=== PATIENT | male | born 1980 | race Two or more races ===

== ENCOUNTER 2020-06-07 01:18 | Emergency (ER) | payer MEDICAID, OTHER ==
[~2020-06-07] VITALS: Ht 198.1 cm; Wt 86.2 kg
--- NOTE | 2020-06-07 01:20 | NUR ---
PT SHARYN FROM STREET C/O ALCOHOL INTOXICATION. PT AAOX4. CALM AND COOPERATIVE. NOTED TACHYCARDIAC, MD AWARE. RESPIRATIONS EVEN AND UNLABORED. NO ACUTE DISTRESS NOTED AT THIS TIME. PLACED ON MONITOR, WILL CONTINUE TO MONITOR
[2020-06-07] MEDS ORDERED: ONDANSETRON HCL/PF 4 MG/2 ML VIAL ONE (01:27)
[2020-06-07] MEDS ORDERED: LORAZEPAM INJ 2 MG/ML VIAL IV ONE (01:30)
[2020-06-07] MEDS ORDERED: IV D5/ 0.9% NACL 1,000 ML IV ONE (01:30)
[2020-06-07] MEDS ORDERED: ONDANSETRON HCL/PF - ER 4 MG/2 ML VIAL IV ONE (01:30)
[2020-06-07 01:42] LABS: BASOPHILS # (AUTO) 0.1 /CMM (0.0-0.2); BASOPHILS % (AUTO) 1.1 % (0.0-2.0); EOSINOPHILS % (AUTO) 0.7 % (0.0-6.0); HEMATOCRIT 48 % (39-51); LYMPHOCYTES # (AUTO) 4.2 /CMM (0.8-4.8); LYMPHOCYTES % (AUTO) 60.1 % (20.0-44.0); MEAN CORPUSCULAR HGB CONC 34 g/dl (31.0-36.0); MEAN CORPUSCULAR VOLUME 99 fL (80-96); MONOCYTES # (AUTO) 0.4 /CMM (0.1-1.30); NEUTROPHILS # (AUTO) 2.2 /CMM (1.8-8.9); NEUTROPHILS % (AUTO) 32.1 % (43.0-81.0); PLATELET COUNT (AUTO) 219 /CMM (150-450); RED BLOOD CELL COUNT(AUTO) 4.82 MIL/uL (4.5-6.0)
[2020-06-07] MEDS ORDERED: LORAZEPAM INJ 2 MG/ML VIAL ONE (01:42)
[2020-06-07 02:06] LABS: CALCIUM, SERUM 8.2 mg/dL (8.5-10.1); CREATININE 0.7 mg/dL (0.6-1.3); POTASSIUM 4.1 mmol/L (3.5-5.1)
[2020-06-07 02:10] LABS: ALBUMIN 3.9 g/dL (3.4-5.0); BILIRUBIN,TOTAL 0.3 mg/dL (0.2-1.0); TOTAL PROTEIN, SERUM 8.1 g/dL (6.4-8.2)
[2020-06-07] MEDS ORDERED: CHLO25CA22 PO (02:37)
[2020-06-07] MEDS ORDERED: CHLORDIAZEPOXIDE HCL 25 MG CAPSULE ONE (02:59)
[2020-06-07] MEDS ORDERED: CHLORDIAZEPOXIDE HCL 25 MG CAPSULE PO ONE (03:00)
--- NOTE | 2020-06-07 03:16 | NUR ---
Patient discharged to home in stable condition. Written and verbal after care instructions given. Patient verbalizes understanding of instruction. IV removed. Catheter intact and site benign. Pressure and 4x4 applied to site. No bleeding noted.
[2020-06-07 03:17] VITALS: BP 130/74
== END 2020-06-07 03:17 | disposition home or self-care (01) ==
LOC: ER 01:20
DX: F10.139 Alcohol abuse with withdrawal, unspecified (principal); F10.129 Alcohol abuse with intoxication, unspecified; Z59.0 Homelessness; Z79.899 Other long term (current) drug therapy; Y90.9 Presence of alcohol in blood, level not specified
CPT/HCPCS: 36415; 80048; 80076; 80299; 80320; 83690; 85025; 93005 ×2; 96365; 96375; 99284; J2060; J2405 ×2; J7030; G0480

== ENCOUNTER 2024-08-04 19:45 | Emergency (ER) | payer MEDICAID, OTHER ==
[~2024-08-04] VITALS: Ht 198.1 cm; Wt 81.6 kg
[~2024-08-04 19:45] MED LIST: CHLO25CA22 PO
[2024-08-04 20:01] VITALS: TEMP 98.4
[2024-08-04 20:27] LABS: BASOPHILS # (AUTO) 0.1 K/uL (0.0-0.2); BASOPHILS % (AUTO) 1.3 % (0.0-2.0); EOSINOPHILS # (AUTO) 0.1 K/uL (0.0-0.7); EOSINOPHILS % (AUTO) 2.9 % (0.0-6.0); HEMATOCRIT 37 % (39-51); HEMOGLOBIN 12.5 g/dL (13.5-17.5); LYMPHOCYTES # (AUTO) 1.5 K/uL (0.8-4.8); LYMPHOCYTES % (AUTO) 30.3 % (20.0-44.0); MEAN CORPUSCULAR HEMOGLOBIN 37 PG (26.0-33.0); MEAN CORPUSCULAR HGB CONC 34 g/dl (31.0-36.0); MEAN CORPUSCULAR VOLUME 110 fL (80-96); MONOCYTES # (AUTO) 0.8 K/uL (0.1-1.30); MONOCYTES % (AUTO) 16.7 % (2.0-12.0); NEUTROPHILS # (AUTO) 2.4 K/uL (1.8-8.9); NEUTROPHILS % (AUTO) 48.8 % (43.0-81.0); PLATELET COUNT (AUTO) 215 K/uL (150-450); RED BLOOD CELL COUNT(AUTO) 3.34 MIL/uL (4.5-6.0); RED CELL DISTRIBUTION WIDTH 18.1 % (11.5-15.0); WHITE BLOOD COUNT (AUTO) 4.9 K/uL (4.3-11.0)
[2024-08-04 20:38] LABS: CARBON DIOXIDE 28 mmol/L (21-32); CHLORIDE 104 mmol/L (98-107); CREATININE 0.7 mg/dL (0.6-1.3); GLUCOSE 78 mg/dL (74-106); POTASSIUM 3.9 mmol/L (3.5-5.1); SODIUM SERUM 139 mmol/L (136-145); UREA NITROGEN, BLOOD 11 mg/dL (7-18)
[2024-08-04] MEDS ORDERED: LORAZEPAM 1 MG TABLET ONE (22:01)
[2024-08-04] MEDS ORDERED: FOLIC ACID 1 MG TABLET ONE (22:01)
[2024-08-04] MEDS ORDERED: THIAMINE HCL 100 MG TABLET ONE (22:01)
[2024-08-04] MEDS: FOLIC ACID 1 MG TABLET PO ONE (22:06)
[2024-08-04] MEDS: LORAZEPAM 1 MG TABLET PO ONE (22:06)
[2024-08-04] MEDS: THIAMINE HCL 100 MG TABLET PO ONE (22:06)
[2024-08-04] MEDS ORDERED: PANT40TA49 PO (22:54)
[2024-08-04] MEDS: LIDOCAINE VISCOUS 2% UD 15 ML UDC MM ONE (23:01)
[2024-08-04] MEDS: FAMOTIDINE (20 MG) 20 MG TABLET PO ONE (23:01)
[2024-08-04] MEDS: MAG HYDROX/AL HYDROX/SIMETH 30 ML UDC PO ONE (23:01)
[2024-08-05 00:21] LABS: LYMPHOCYTES % (MANUAL) 31 % (16-48); NEUTROPHILS % (MANUAL) 53 (42-76)
[2024-08-05 00:22] LABS: EOSINOPHILS % (MANUAL) 2 % (0-4); MONOCYTES % (MANUAL) 14 % (0-11.0); PLATELET ESTIMATE ADEQUATE
[2024-08-05 00:23] LABS: STOMATOCYTES FEW
[2024-08-05 01:20] VITALS: BP 124/69; O2SAT 99
== END 2024-08-05 00:46 | disposition home or self-care (01) ==
LOC: ER 19:46
DX: R07.89 Other chest pain (principal); R91.1 Solitary pulmonary nodule; F10.21 Alcohol dependence, in remission; Z86.79 Personal history of other diseases of the circulatory system; Y90.9 Presence of alcohol in blood, level not specified
CPT/HCPCS: 36415; 71045-TC; 80048-TC; 84484-TC; 85025-TC

== ENCOUNTER 2024-10-26 15:46 | Emergency (ER) | payer OTHER ==
[~2024-10-26] VITALS: Ht 198.1 cm; Wt 83.9 kg
[~2024-10-26 15:46] MED LIST changes: +PANT40TA49 PO
[2024-10-26 16:47] LABS: CALCIUM, SERUM 8.2 mg/dL (8.5-10.1); CREATININE 0.8 mg/dL (0.6-1.3); SERUM AMMONIA 20.0 umol/L (11-32); SODIUM SERUM 141.0 mmol/L (136-145); UREA NITROGEN, BLOOD 7.0 mg/dL (7-18)
[2024-10-26 16:50] LABS: INR 0.97 (0.91-1.10)
[2024-10-26 16:55] LABS: ALCOHOL, BLOOD 163.0 mg/dL (0-10); ASPARTATE AMINOTRANSFERASE 17.0 U/L (15-37); TOTAL PROTEIN, SERUM 7.3 g/dL (6.4-8.2)
[2024-10-26] MEDS ORDERED: CHLORDIAZEPOXIDE HCL 25 MG CAPSULE ONE (17:14)
[2024-10-26] MEDS: CHLORDIAZEPOXIDE HCL 25 MG CAPSULE PO ONE (17:19)
[2024-10-26] MEDS ORDERED: CHLO25CA22 PO (17:52)
[2024-10-26 18:20] VITALS: BP 92/65; TEMP 98.6; O2SAT 98
[2024-10-26 19:02] LABS: APPEARANCE,URINE CLEAR (CLEAR); BLOOD, URINE NEGATIVE Ery/uL (NEGATIVE); LEUKOCYTE ESTERASE ,URINE NEGATIVE (NEGATIVE); NITRITE, URINE NEGATIVE (NEGATIVE); UGLUCOSE NEGATIVE (NEGATIVE)
[2024-10-26 19:03] LABS: AMPHETAMINE, URINE NEGATIVE (NEGATIVE); BARBITURATE, URINE NEGATIVE (NEGATIVE); COCCAINE, URINE NEGATIVE (NEGATIVE); OPIATE, URINE NEGATIVE (NEGATIVE)
[2024-10-26 19:04] LABS: BENZODIAZEPINE, URINE POSITIVE (NEGATIVE); CANNABINOID, URINE POSITIVE (NEGATIVE)
== END 2024-10-26 18:24 | disposition home or self-care (01) ==
LOC: EDUNIT# 15:46 → ER 15:52
DX: F10.10 Alcohol abuse, uncomplicated (principal); R41.82 Altered mental status, unspecified; D68.9 Coagulation defect, unspecified; R56.9 Unspecified convulsions; Z59.00 Homelessness unspecified; Z79.899 Other long term (current) drug therapy; Z86.79 Personal history of other diseases of the circulatory system; Y90.6 Blood alcohol level of 120-199 mg/100 ml
CPT/HCPCS: 36415; 70450-TC; 80048-TC; 80076-TC; 82140-TC; 84443-TC; 85730-TC; G0480